=== PATIENT | male | born 1995 | race Asian ===

== ENCOUNTER 2020-06-12 00:31 | Emergency (ER) | payer OTHER ==
[~2020-06-12] VITALS: Ht 167.6 cm; Wt 63.5 kg
[2020-06-12 00:47] LABS: ABSOLUTE NEUTROPHILS 3.8 thou/uL (1.4-8.2); BASOPHILS 0.8 % (0.0-2.0); EOSINOPHILS 0.5 % (0.0-3.0); LYMPHOCYTES 41.1 % (24.0-44.0); MCH 32.5 pg (26.0-34.0); MCHC 34.9 g/dL (28.0-37.0); MCV 93.2 fL (80.0-100.0); MONOCYTES 9.2 % (1.0-8.0); PLATELET COUNT 358 thou/uL (150-400); POLYS 48.4 % (36.0-66.0); RBC 4.61 mil/uL (4.50-6.00); RDW 12.5 % (10.5-14.5); WBC 7.8 thou/uL (4.0-11.0)
[2020-06-12 01:06] LABS: CALCIUM 9.2 mg/dL (8.5-10.1); CREATININE 1.1 mg/dL (0.7-1.3); POTASSIUM 3.4 mmol/L (3.5-5.1)
[2020-06-12 01:12] LABS: ALBUMIN 4.5 g/dL (3.4-5.0); TOTAL BILIRUBIN 0.9 mg/dL (0.2-1.0); TOTAL PROTEIN 8.2 g/dL (6.4-8.2)
[2020-06-12 03:33] VITALS: BP 118/60
== END 2020-06-12 04:33 | disposition home or self-care (01) ==
LOC: ER 00:31
PROVIDERS: Emergency Medicine
DX: R42 Dizziness and giddiness (principal); R11.2 Nausea with vomiting, unspecified; Z88.1 Allergy status to other antibiotic agents

== ENCOUNTER 2021-09-19 18:30 | Emergency (ER) | payer OTHER ==
[~2021-09-19] VITALS: Ht 167.6 cm; Wt 63.5 kg
[2021-09-19 19:04] LABS: ABSOLUTE NEUTROPHILS 4.5 thou/uL (1.4-8.2); BASOPHILS 0.7 % (0.0-2.0); EOSINOPHILS 0.5 % (0.0-3.0); HEMATOCRIT 47.6 % (42.0-52.0); HEMOGLOBIN 16.2 gm/dL (14.0-18.0); LYMPHOCYTES 34.9 % (24.0-44.0); MCH 31.5 pg (26.0-34.0); MCHC 34.1 g/dL (28.0-37.0); MCV 92.3 fL (80.0-100.0); MONOCYTES 12.3 % (1.0-8.0); PLATELET COUNT 451 thou/uL (150-400); POLYS 51.6 % (36.0-66.0); RBC 5.16 mil/uL (4.50-6.00); RDW 12.7 % (10.5-14.5); WBC 8.7 thou/uL (4.0-11.0)
[2021-09-19 19:13] LABS: CALCIUM 9.6 mg/dL (8.5-10.1); CREATININE 1.1 mg/dL (0.7-1.3); POTASSIUM 3.9 mmol/L (3.5-5.1)
[2021-09-19 19:23] LABS: TOTAL BILIRUBIN 0.5 mg/dL (0.2-1.0); TOTAL PROTEIN 9.2 g/dL (6.4-8.2)
[2021-09-19 20:44] VITALS: BP 133/92
--- NOTE | 2021-09-22 07:24 | EKG ---
[address] [address] ELECTROCARDIOGRAM REPORT Name: VANGIE SANTIZO Room #: [facility]P [facility] [id number] Admission: 09/19/21 Attend Phys: Discharge: 09/19/21 Date of : [birth year] Report #: [id number] [facility] ED Test Date: 2021-09-19 Test Time: 20:25:44 Pat Name: VANGIE SANTIZO Department: Room: Gender: M [employer]: : 1995 Requested By: Parrish Hanson Order Number: [id number] MD: Allan Odom Measurements Intervals [place] Rate: 72 P: 72 FL: 160 QRS: 64 QRSD: 88 T: 30 QT: 366 QTc: 401 Interpretive Statements Sinus rhythm ST elev, probable normal early repol pattern No previous ECG available for comparison Electronically Signed On 09-22-2021 7:24:37 CDT by Allan Odom [email or web address] <ELECTRONICALLY SIGNED> By: Allan Odom MD, [facility] 09/22/21 0724 24 24 Allan Odom MD, FACC /EPI
== END 2021-09-19 20:45 | disposition home or self-care (01) ==
LOC: ER 18:30
PROVIDERS: Emergency Medicine
DX: R04.2 Hemoptysis (principal); Z20.822 Contact with and (suspected) exposure to COVID-19; Z88.0 Allergy status to penicillin